=== PATIENT | female | born 1985 | race Caucasian/White ===

== ENCOUNTER → 2017-03-11 | Outpatient (CLI) | payer MEDICAID | LOC: HPND 07:51 | PROVIDERS: ATTEND Obstetrics & Gynecology | DX: O09.213 Supervision of pregnancy with history of pre-term labor, third trimester (principal); O24.419 Gestational diabetes mellitus in pregnancy, unspecified control; O99.283 Endocrine, nutritional and metabolic diseases complicating pregnancy, third trimester; E03.9 Hypothyroidism, unspecified; O09.293 Supervision of pregnancy with other poor reproductive or obstetric history, third trimester; Z3A.28 28 weeks gestation of pregnancy; Z82.79 Family history of other congenital malformations, deformations and chromosomal abnormalities | CPT/HCPCS: 76816 ==